=== PATIENT | female | born 1980 | race Caucasian/White ===

== ENCOUNTER 2018-03-06 19:47 | Emergency (ER) | payer OTHER, MEDICAID, SELFPAY ==
[2018-03-06 20:02] VITALS: BP 154/91; PULSE 84; RESP 14; TEMP 36.8; O2SAT 98; BMI 43.0
--- NOTE | 2018-03-06 20:37 | ED.BACK ---
HPI - Back Pain/Injury <ANN MARIE Dubon - Last Filed: 03/06/18 22:10> General Chief Complaint: Back Pain/Injury Stated Complaint: sciatic nerve pain Time Seen by Provider: 03/06/18 20:34 Source: patient Mode of arrival: ambulatory Limitations: no limitations History of Present Illness HPI Narrative: 37-year-old female here for complaint of lower back pain with pain radiating down into her left buttocks area for the last day and half. She denies any trauma to her lower back. She does report that she was unloading dog food from a truck a few days ago however she denies any other strenuous activity. She reports increased pain with movement of the lower back. She denies any loss of bladder or bowel control. Patient is ambulatory into the emergency room. She reports that she has had back pain in the past but she has not had any issues over the past couple of years. No other concerns or complaints. MD Complaint: back pain Related Data Previous Rx's Medication Instructions Recorded cyclobenzaprine 10 mg PO TID PRN #15 tab 03/06/18 prednisone 40 mg PO DAILY #6 tab 03/06/18 Allergies Allergy/AdvReac Type Severity Reaction Status Date / Time No Known Drug Allergies Allergy Verified 03/06/18 20:04 Review of Systems <ANN MARIE Dubon - Last Filed: 03/06/18 22:10> Constitutional Denies chills, Denies fever(s), Denies lethargy and Denies weakness Eyes Denies change in vision, Denies eye discharge, Denies irritation and Denies loss of vision ENT Ears, Nose, Mouth, and Throat: Denies change in voice, Denies neck pain and Denies sore throat Cardiovascular Denies chest pain, Denies irregular heart rhythm, Denies lightheadedness, Denies palpitations, Denies dyspnea, Denies dyspnea on exertion and Denies orthopnea Respiratory Denies cough, Denies dyspnea, Denies dyspnea on exertion and Denies wheezing Gastrointestinal Gastrointestinal: Denies abdominal pain, Denies change in bowel habits, Denies diarrhea, Denies nausea and Denies vomiting Genitourinary Denies hematuria, Denies flank pain, Denies urinary incontinence and Denies urinary urgency Musculoskeletal Reports back pain and Denies neck pain Integumentary/Breasts Denies pruritus, Denies erythema, Denies rash and Denies wounds Neurologic Denies confusion, Denies loss of vision and Denies weakness Psychiatric Denies anxiety, Denies confusion, Denies depression, Denies homicidal ideation and Denies suicidal ideation Endocrine Denies palpitations Hematologic/Lymphatic Denies easy bruising Allergic/Immunologic Denies wheezing Exam <ANN MARIE Dubon - Last Filed: 03/06/18 22:10> Initial Vital Signs Initial Vital Signs: Vital Signs Temperature 98.3 F 03/06/18 20:02 Pulse Rate 84 03/06/18 20:02 Respiratory Rate 14 03/06/18 20:02 Blood Pressure 154/91 H 03/06/18 20:02 Pulse Oximetry 98 03/06/18 20:02 Const General: cooperative and well developed Nutritional Appearance: well nourished Orientation: alert, awake, oriented x3 and not confused HENVA Mouth: oral mucosae normal, oropharynx normal and moist mucous membranes Eyes Sclera: sclerae normal Cornea: corneas normal Pupils: PERRL EOM: EOM intact bilaterally Chest Chest: normal inspection of the chest Resp Effort & Inspection: normal respiratory effort, able to speak in complete sentences, no respiratory distress and no use of accessory muscles Auscultation: clear to auscultation bilaterally, no rales, no rhonchi and no wheezes Cardio Rate: regular rate Rhythm: regular rhythm Heart Sounds: no click, no gallops, no murmurs and no rubs General: CVA tenderness Back/Spine/Pelvis Other: Tenderness to lumbar paraspinals. No midline tenderness. No deformities. Tenderness on palpation radiate into her left buttocks. Distal sensation is intact. Distal range of motion is intact. Distal pulses are intact. Skin General: no rashes or lesions noted, No jaundice and No petechiae <Benedicto Davis DO - Last Filed: 03/07/18 01:31> Initial Vital Signs Initial Vital Signs: Vital Signs Temperature 98.3 F 03/06/18 20:02 Pulse Rate 84 03/06/18 20:02 Respiratory Rate 14 03/06/18 20:02 Blood Pressure 154/91 H 03/06/18 20:02 Pulse Oximetry 98 03/06/18 20:02 Course <ANN MARIE Dubon - Last Filed: 03/06/18 22:10> Orders Ordered: Discontinued Medications Cyclobenzaprine HCl (Flexeril) 10 mg PO NOW ONE Stop: 03/06/18 21:18 Last Admin: 03/06/18 21:22 Dose: 10 mg Prednisone (Deltasone) 40 mg PO NOW ONE Stop: 03/06/18 21:18 Last Admin: 03/06/18 21:21 Dose: 40 mg Vital Signs - 8 hr 03/06/18 20:02 03/06/18 21:35 Temperature 98.3 F Pulse Rate 84 78 Respiratory Rate 14 16 Blood Pressure 154/91 H 119/70 Pulse Oximetry 98 97 <Benedicto Davis DO - Last Filed: 03/07/18 01:31> Orders Ordered: Discontinued Medications Cyclobenzaprine HCl (Flexeril) 10 mg PO NOW ONE Stop: 03/06/18 21:18 Last Admin: 03/06/18 21:22 Dose: 10 mg Prednisone (Deltasone) 40 mg PO NOW ONE Stop: 03/06/18 21:18 Last Admin: 03/06/18 21:21 Dose: 40 mg Vital Signs - 8 hr 03/06/18 20:02 03/06/18 21:35 Temperature 98.3 F Pulse Rate 84 78 Respiratory Rate 14 16 Blood Pressure 154/91 H 119/70 Pulse Oximetry 98 97 MDM - Back Pain/Injury <ANN MARIE Dubon - Last Filed: 03/06/18 22:10> MDM Narrative Medical decision making narrative: Signs and symptoms presents as strain into lumbar left paraspinals causing sciatica to the left side. She is prescribed cyclobenzaprine and also short course of steroids. [id number] ibuprofen as needed for any discomfort. Generalized range of motion to the lumbar area to help with keeping muscles loose. Follow up with primary care provider later this week. Return emergency room for any worsening symptoms. Discharge Plan Departure Patient Disposition: Home, Self-Care Clinical Impression: Strain of lumbar region Discharge Date/Time: 03/06/18 21:36 Interventions: ED Discharge Assessment Last Done: 03/06/18 21:35 Instructions: DI for Low Back Pain Activity Restrictions/Additional Instructions: Signs and symptoms presents as strain to lower back causing sciatica to the left side. You have been prescribed cyclobenzaprine a muscle relaxer and also short course of steroids use as directed. [id number] ibuprofen as needed for any discomfort. Generalized range of motion to the lumbar area to help with keeping muscles loose. Follow up with primary care provider later this week. Return emergency room for any worsening symptoms. Prescriptions: New cyclobenzaprine 10 mg tablet 10 mg PO TID PRN (Reason: muscle spasm) Qty: 15 RF: 0 prednisone 20 mg tablet 40 mg PO DAILY Qty: 6 RF: 0 Referrals: Cami Helms PA-C [Primary Care Provider] - <Benedicto Davis DO - Last Filed: 03/07/18 01:31> Cosign ED Attending [place] Attestation: I was available for consultation during this patient's emergency department encounter
[2018-03-06] MEDS: predniSONE 20 MG TABLET 40 MG PO (21:21)
[2018-03-06] MEDS: CYCLOBENZAPRINE 10 MG TABLET PO (21:22)
[2018-03-06 21:35] VITALS: BP 119/70; PULSE 78; RESP 16; O2SAT 97
== END 2018-03-06 21:36 | disposition home or self-care (01) ==
PROVIDERS: Emergency Provider Nurse Practitioner Family; Family Provider Physician Assistant Medical; PCP Physician Assistant Medical
DX: S39.012A Strain of muscle, fascia and tendon of lower back, initial encounter (principal)
CPT/HCPCS: 99282; 99283

== ENCOUNTER 2018-09-26 16:55 | Emergency (ER) | payer OTHER, MEDICAID, SELFPAY ==
[2018-09-26 17:02] VITALS: BP 146/79; PULSE 75; RESP 20; TEMP 36.7; O2SAT 99
--- NOTE | 2018-09-26 17:03 | ED.EAR ---
HPI - Ear Problem <ANN MARIE Dubon - Last Filed: 09/26/18 22:02> General Chief complaint: Ear Stated complaint: SOMETHING STUCK IN EAR Time Seen by Provider: 09/26/18 17:02 Source: patient Mode of arrival: ambulatory Limitations: no limitations History of Present Illness HPI Narrative: 38-year-old healthy female is a nonsmoker here for complaint of foreign body to her right ear. She states she was using a Q-tip earlier today when the cotton portion of the Q-tip state in her right ear. She reports that she tried to remove the Q-tip however was not able to be removed. She denies any ear pain. She denies any drainage from the right ear. She feels pressure to the right ear. And slightly reduced hearing. She reports no dizziness. No other concerns or complaints. MD Complaint: foreign body Related Data Previous Rx's Medication Instructions Recorded cyclobenzaprine 10 mg PO TID PRN #15 tab 03/06/18 prednisone 40 mg PO DAILY #6 tab 03/06/18 Allergies Allergy/AdvReac Type Severity Reaction Status Date / Time No Known Drug Allergies Allergy Verified 03/06/18 20:04 Review of Systems <ANN MARIE Dubon - Last Filed: 09/26/18 22:02> Constitutional Denies chills, Denies fever(s), Denies lethargy and Denies weakness Eyes Denies change in vision, Denies eye discharge, Denies irritation and Denies loss of vision ENT Comments: Foreign body right ear Cardiovascular Denies chest pain, Denies irregular heart rhythm, Denies lightheadedness, Denies palpitations, Denies dyspnea, Denies dyspnea on exertion and Denies orthopnea Respiratory Denies cough, Denies dyspnea, Denies dyspnea on exertion and Denies wheezing Gastrointestinal Gastrointestinal: Denies abdominal pain, Denies change in bowel habits, Denies diarrhea, Denies nausea and Denies vomiting Genitourinary Denies hematuria, Denies flank pain, Denies urinary incontinence and Denies urinary urgency Musculoskeletal Denies back pain, Denies muscle weakness, Denies numbness and Denies tingling Integumentary/Breasts Denies pruritus, Denies erythema, Denies rash and Denies wounds Neurologic Denies confusion, Denies loss of vision, Denies numbness, Denies tingling and Denies weakness Psychiatric Denies anxiety, Denies confusion, Denies depression, Denies homicidal ideation and Denies suicidal ideation Endocrine Denies palpitations Hematologic/Lymphatic Denies easy bruising Allergic/Immunologic Denies wheezing Exam <ANN MARIE Dubon - Last Filed: 09/26/18 22:02> Initial Vital Signs Initial Vital Signs: Vital Signs Temperature 98.1 F 09/26/18 17:02 Pulse Rate 75 09/26/18 17:02 Respiratory Rate 20 09/26/18 17:02 Blood Pressure 146/79 H 09/26/18 17:02 Pulse Oximetry 99 09/26/18 17:02 Const General: cooperative and well developed Nutritional Appearance: well nourished Orientation: alert, awake, oriented x3 and not confused HENMT Ears: external ears normal, TM's normal bilaterally and other (Cotton foreign body seen to right external ear) Mouth: oral mucosae normal and mucous membranes abnormal Eyes Conjunctivae: conjunctivae normal Sclera: sclerae normal Pupils: PERRL EOM: EOM intact bilaterally Resp Effort & Inspection: normal respiratory effort, able to speak in complete sentences, no respiratory distress and no use of accessory muscles Auscultation: clear to auscultation bilaterally, no rales, no rhonchi and no wheezes Cardio Rate: regular rate Rhythm: regular rhythm Heart Sounds: no click, no gallops, no murmurs and no rubs Skin General: no rashes or lesions noted, No jaundice and No petechiae Neuro General: alert, oriented x3, gait normal and no focal motor deficits Speech: speech normal <Sue Gama DO - Last Filed: 09/29/18 18:47> Initial Vital Signs Initial Vital Signs: Vital Signs Temperature 98.1 F 09/26/18 17:02 Pulse Rate 75 09/26/18 17:02 Respiratory Rate 20 09/26/18 17:02 Blood Pressure 146/79 H 09/26/18 17:02 Pulse Oximetry 99 09/26/18 17:02 Procedures <ANN MARIE Dubon - Last Filed: 09/26/18 22:02> Foreign Body EAR Location: ear canal (R) Foreign Body Suspected: other (Cotton tip from acute) TM intact pre-procedure: unable to visualize Foreign Body Removed: yes Foreign Body Removal Technique: instrumentation Tympanic Membrane Intact Post Procedure: Yes Patient Tolerated Procedure: Well Complications: none Course <ANN MARIE Dubon - Last Filed: 09/26/18 22:02> Vital Signs - 8 hr 09/26/18 17:02 Temperature 98.1 F Pulse Rate 75 Respiratory Rate 20 Blood Pressure 146/79 H Pulse Oximetry 99 <Sue Gama DO - Last Filed: 09/29/18 18:47> Vital Signs - 8 hr 09/26/18 17:02 Temperature 98.1 F Pulse Rate 75 Respiratory Rate 20 Blood Pressure 146/79 H Pulse Oximetry 99 Medical Decision Making <Humberto SandersonANN MARIE ulloa - Last Filed: 09/26/18 22:02> MDM Narrative Medical decision making narrative: Foreign body of Q-tip tip was removed with Covarrubias Cathryn ear forceps. Was able to remove the foreign body with no complications. Patient tolerated well. Tympanic membranes were intact after removal. Follow up with primary care provider. Return emergency room for any worsening symptoms. Discharge Plan Departure Patient Disposition: Home Clinical Impression: Foreign body in right ear Discharge Date/Time: 09/26/18 17:36 Interventions: ED Discharge Assessment Last Done: 09/26/18 17:35 Instructions: DI for Removal of Foreign Body From Ear Activity Restrictions/Additional Instructions: Q-tip cotton was able to be removed in the emergency room today. Inner ear appears to be normal. Follow up with her primary care provider. For any worsening symptoms return to the emergency room. Prescriptions: No Action cyclobenzaprine 10 mg tablet 10 mg PO TID PRN (Reason: muscle spasm) Qty: 15 RF: 0 prednisone 20 mg tablet 40 mg PO DAILY Qty: 6 RF: 0 Referrals: Cami Helms PA-C [Primary Care Provider] - <Sue Gama DO - Last Filed: 09/29/18 18:47> Cosign ED Attending Nannetteature Attestation: I was immediately available in the department for consultation. This documentation has been reviewed and I agree with assessment and plan. Supervised by Sue Gama DO
--- NOTE | 2018-09-26 17:22 | PC.NURSE ---
Visualized a piece of cotton from a Qtip, per the patient, inside the right ear canal. Patient denies pain or discomfort at this time.
== END 2018-09-26 17:36 | disposition home or self-care (01) ==
PROVIDERS: Emergency Provider Nurse Practitioner Family; Family Provider Physician Assistant Medical; PCP Physician Assistant Medical
DX: T16.1XXA Foreign body in right ear, initial encounter (principal)
CPT/HCPCS: 99282

== ENCOUNTER 2021-09-01 01:18 | Emergency (ER) | payer OTHER, MEDICAID, SELFPAY ==
[2021-09-01 01:25] VITALS: BP 169/96; PULSE 103; RESP 16; TEMP 37.2; O2SAT 98; BMI 45.4
--- NOTE | 2021-09-01 01:31 | ED_ITS ---
HPI - General Chief complaint: OB/Uterine Contractions Stated complaint: 9 weeks /bleeding x2 hours Time Seen by Provider: 09/01/21 01:30 History of Present Illness HPI Narrative: 41-year-old female nonsmoker is a at 9 weeks and presents with lower pelvic cramping and bleeding with the passage of clots over the course of the day. She states that she has had some spotting over the past few days but it definitely has increased today. She denies the passage of any other fluid or discharge. She has had no fever chills and denies any dizziness, weakness or ligh theadedness. Related Data Previous Rx's Medication Instructions Recorded cyclobenzaprine 10 mg tablet 10 mg PO TID PRN #15 tab 03/06/18 prednisone 20 mg tablet 40 mg PO DAILY #6 tab 03/06/18 Allergies Allergy/AdvReac Type Severity Reaction Status Date / Time No Known Drug Allergies Allergy Verified 03/06/18 20:04 Review of Systems Review of Systems Narrative: GENERAL: Denies chills, fatigue, malaise, fever, sweats. HEENT: Denies sinus pain, ear pain, sore throat, difficulty swallowing, dizzines s. RESPIRATORY: Denies dyspnea, cough, wheezing, hemoptysis, sputum. CARDIOVASCULAR: Denies chest pain, palpitations, orthopnea, edema, GASTROINTESTINAL: Denies nausea, vomiting, abdominal pain, diarrhea, constipation, melena. : See HPI MUSCULOSKELETAL: denies weakness, joint pain, or bony pain SKIN: Denies rash, skin lesions, or other NEUROLOGIC: Denies weakness, headache, numbness, change in speech, confusion, seizures, incoordination. PSYCHIATRIC: No concerning psychosocial issues. 12 point review of systems is negative except for those stated above Exam Narrative Exam Narrative: GENERAL: [41 year old patient appears stated age. Well-developed patient, in mild distress. HEAD: Atraumatic. Normocephalic. EYES: Pupils equal round and reactive. Extraocular motions intact. No scleral icterus. No injection or drainage. ENT: Nose without bleeding, purulent drainage. Throat without erythema, tonsillar hypertrophy or exudate. Airway patent. NECK: Trachea midline. Non tender CARDIOVASCULAR: Regular rate and rhythm without murmurs, gallops, or rubs. RESPIRATORY: Clear to auscultation. Breath sounds equal bilaterally. No wheezes, rales, or rhonchi. GASTROINTESTINAL: Abdomen soft, non-tender, nondistended. EXTREMITIES: No edema or joint tenderness. BACK: Nontender without deformity or crepitance. No flank tenderness. NEURO: AOx3. SKIN: No rash or erythema of visible areas Initial Vital Signs Initial Vital Signs: Vital Signs Temperature 98.9 F 09/01/21 01:25 Pulse Rate 103 H 09/01/21 01:25 Respiratory Rate 16 09/01/21 01:25 Blood Pressure 169/96 H 09/01/21 01:25 Pulse Oximetry 98 09/01/21 01:25 Course Orders Ordered: ED Orders 09/01/21 01:50 ABO RH Type Stat Complete Blood Count AUTO DIFF Stat Comprehensive Metabolic Panel Stat HCG Quantitative /Beta subunit Stat 09/01/21 01:52 US OB <= 14 weeks fetus Stat 09/01/21 03:16 Urine Culture Stat Urine Microscopic Stat Vital Signs Vital signs: Vital Signs - 8 hr 09/01/21 01:25 09/01/21 04:00 Temperature 98.9 F Pulse Rate 103 H 92 H Respiratory Rate 16 18 Blood Pressure 169/96 H 169/85 H Pulse Oximetry 98 96 MDM - OB/Uterine Contractions Lab Data Result diagrams: 09/01/21 01:50 09/01/21 01:50 Labs: Lab Results 09/01/21 09/01/21 09/01/21 Range/Units 01:50 01:50 01:50 WBC 10.9 (4.5-11.0) X10^3/uL RBC 4.57 (4.0-5.2) X10^6/uL Hgb 14.5 (12.0-16.0) g/dL Hct 40.6 (36-46) % MCV 88.8 (80-100) fL MCH 31.6 (26-34) PG MCHC 35.6 (30-36) % RDW 13.2 (11.6-14.8) % Plt Count 210 (150-400) X10^3/uL Neut % (Auto) 75.4 H (50-75) % Lymph % (Auto) 19.4 L (25-40) % [place] % (Auto) 4.0 (3-14) % Eos % (Auto) 0.8 L (2-4) % Baso % (Auto) 0.4 (0-2) % Neut # (Auto) 8200 H (8427-2857) /uL Lymph # (Auto) 2100 (3022-4643) /uL [place] # (Auto) 400 (0-900) /uL Eos # (Auto) 100 (0-450) /uL Baso # (Auto) 0 (0-100) /uL Sodium 137 (137-145) mmol/L Potassium 3.4 (3.4-5.1) mmol/L Chloride 103 (98-107) mmol/L Carbon Dioxide 22 (22-32) mmol/L BUN 8 (7-17) mg/dL Creatinine 0.50 L (0.52-1.04) mg/dL Estimated GFR > 60.0 (>60) mL/min BUN/Creatinine Ratio 16.0 (6-22) Glucose 178 H (70-100) mg/dL Calcium 9.3 (8.4-10.2) mg/dL Total Bilirubin 0.9 (0.2-1.3) mg/dL AST 27 (14-36) IU/L ALT 28 (<35) IU/L Alkaline Phosphatase 38 (38-126) U/L Total Protein 7.5 (6.3-8.2) g/dL Albumin 4.3 (3.5-5.0) g/dL Globulin 3.2 (1.7-4.1) g/dL Albumin/Globulin Ratio 1.3 (1.0-2.8) HCG, Quant 382018 mIU/mL Urine RBC (0-5/HPF) Urine WBC (0-5/HPF) Ur Squamous Epith Cells (0-5/HPF) Urine Bacteria (None) Ur Culture Indicated? Blood Type O Positive 09/01/21 Range/Units 03:16 WBC (4.5-11.0) X10^3/uL RBC (4.0-5.2) X10^6/uL Hgb (12.0-16.0) g/dL Hct (36-46) % MCV (80-100) fL MCH (26-34) PG MCHC (30-36) % RDW (11.6-14.8) % Plt Count (150-400) X10^3/uL Neut % (Auto) (50-75) % Lymph % (Auto) (25-40) % [place] % (Auto) (3-14) % Eos % (Auto) (2-4) % Baso % (Auto) (0-2) % Neut # (Auto) (5114-3378) /uL Lymph # (Auto) (4163-7449) /uL [place] # (Auto) (0-900) /uL Eos # (Auto) (0-450) /uL Baso # (Auto) (0-100) /uL Sodium (137-145) mmol/L Potassium (3.4-5.1) mmol/L Chloride (98-107) mmol/L Carbon Dioxide (22-32) mmol/L BUN (7-17) mg/dL Creatinine (0.52-1.04) mg/dL Estimated GFR (>60) mL/min BUN/Creatinine Ratio (6-22) Glucose (70-100) mg/dL Calcium (8.4-10.2) mg/dL Total Bilirubin (0.2-1.3) mg/dL AST (14-36) IU/L ALT (<35) IU/L Alkaline Phosphatase (38-126) U/L Total Protein (6.3-8.2) g/dL Albumin (3.5-5.0) g/dL Globulin (1.7-4.1) g/dL Albumin/Globulin Ratio (1.0-2.8) HCG, Quant mIU/mL Urine RBC 0-1/hpf (0-5/HPF) Urine WBC 0-1/hpf (0-5/HPF) Ur Squamous Epith Cells 1-5 /hpf (0-5/HPF) Urine Bacteria Many (>30) H (None) Ur Culture Indicated? Specimen cultured Blood Type Urine Dip Bedside Urine Glucose Negative Bedside Urine Bilirubin - Negative Bedside Urine Ketone + 15 Urine Specific [place] 1.030 Bedside Urine Occult Blood +++ Bedside Urine pH 6.0 Bedside Urine Protein +/- 15 Bedside Urine Urobilinogen - Negative Bedside Urine Nitrite - Negative Bedside Urine Leukocytes - Negative Esterase Imaging Data US - OB: Radiologist's Impression: Single living intrauterine gestation estimated at 9 weeks 1 day. Subchorionic hemorrhage demonstrated MDM Narrative Medical decision making narrative: Patient with reassuring history and physical exam. Labs are unremarkable, patient does not need RhoGAM. Bleeding is minimal. Ultrasound demonstrates i ntrauterine and subchorionic hemorrhage. Patient given return precautions and questions answered to her apparent satisfaction Discharge Plan Departure Patient Disposition: Home Clinical Impression: Bleeding in early Instructions: DI for -- Discomforts and Remedies Activity Restrictions/Additional Instructions: *You have been diagnosed with [bleeding in 1st trimester, your history, physical exam, labs and ultrasound are reassuring. There is no evidence of ectopic . Ultrasound does show a small implantation bleed which is treated most commonly by pelvic rest. *What to do: *Please continue to take your regular medications as directed. [ ] New medication prescriptions sent to your pharmacy: [ ] [ ] New medication written as a paper prescription [x ] No new medications given *Please follow up with your primary care provider in 2-3 days, call for an appointment. Let them know you were seen in the Emergency Department and that we ask that you be seen in follow up. We will electronically transmit a record of arlen davis's note if your PCP is in our system *If you do not have a primary care provider please contact the [facility] Resource line at [phone]. They will ask some questions about your medical history and help get you set up with a doctor in the community. *Return to Emergency Department if you should have any new, worsening or concerning symptoms, such as [fever greater than 101 F, shaking chills, worsening pain, heavy, persistent bleeding through more than 1 pad per hour, or other bothersome symptoms Prescriptions: No Action cyclobenzaprine 10 mg tablet 10 mg PO TID PRN (Reason: muscle spasm) Qty: 15 0RF prednisone 20 mg tablet 40 mg PO DAILY Qty: 6 0RF Rx Instructions: administer with food or milk Referrals: Cami Helms PA-C [Primary Care Provider] -
--- NOTE | 2021-09-01 01:52 | DI.US.S_ITS ---
PROCEDURE: US OB <= 14 WEEKS FETUS INDICATIONS: BLEEDING OUTSIDE/PRIOR DATING DATA: Last menstrual period (LMP): Not known LMP-based estimated date of delivery (JASPER): Not applicable First dating scan (date and location): September 01, 2021 Estimated date of delivery (JASPER) from first dating scan: April 05, 2022 The calculations are made using the ultrasound JASPER of April 05, 2022 TECHNIQUE: Real-time scanning was performed of the fetus and maternal pelvic organs, with image documentation. Endovaginal scanning was also performed to better visualize the fetus and maternal ovaries. COMPARISON: None. FINDINGS: Embryo: Single living intrauterine identified. pole and yolk sac are identified. [place]-rump length measures 2.4 centimeters corresponding to ultrasound estimated gestational age of 9 weeks 1 day. Small 3.2 x 1.6 x 1.2 centimeter perigestational/subchorionic bleed. Heart rate: 175 beats per minute Maternal organs: Ovaries not visualized and cannot be evaluated. IMPRESSION: Single living intrauterine with ultrasound estimated gestational age of 9 weeks 1 day corresponding to ultrasound JASPER of April 05, 2022. Dictated by: Radha Stanley MD, PhD on 09/01/2021 at 8:19 Approved by: Radha Stanley MD, PhD on 09/01/2021 at 8:21 We strive to produce accurate, complete, and clear reports of imaging services. To assist us in improving patient care, this report was composed using standard report templates and voice recognition software. Therefore, it may contain abnormal punctuation, misrecognitions, insertions and/or omissions. Occasional wrong-word or sound-alike substitutions may occur. Though we review the report and make efforts to correct it, we do recommend that the report be read carefully in proper context to recognize any text inaccuracies.
[2021-09-01 02:15] LABS: Add Manual Diff / Slide Review NO; Basophils Absolute Auto 0 /uL (0-100); Basophils Percent Auto 0.4 % (0-2); Eosinophils Absolute Auto 100 /uL (0-450); Eosinophils Percent Auto 0.8 % (2-4); Hematocrit 40.6 % (36-46); Hemoglobin 14.5 g/dL (12.0-16.0); Lymphocytes Absolute Auto 2100 /uL (1100-4500); Lymphocytes Percent Auto 19.4 % (25-40); Mean Corpuscular HGB Conc 35.6 % (30-36); Mean Corpuscular Hemoglobin 31.6 PG (26-34); Mean Corpuscular Volume 88.8 fL (80-100); Monocytes Absolute Auto 400 /uL (0-900); Neutrophils Absolute Auto 8200 /uL (1500-7000); Neutrophils Percent Auto 75.4 % (50-75); Platelet Count 210 X10^3/uL (150-400); Red Blood Cell Count 4.57 X10^6/uL (4.0-5.2); Red Cell Distribution Width 13.2 % (11.6-14.8); White Blood Cell Count 10.9 X10^3/uL (4.5-11.0)
[2021-09-01 02:20] LABS: Alanine Aminotransferase 28 IU/L (<35); Albumin 4.3 g/dL (3.5-5.0); Albumin Globulin Ratio 1.3 (1.0-2.8); Alkaline Phosphatase 38 U/L (38-126); Aspartate Aminotransferase 27 IU/L (14-36); Bilirubin Total 0.9 mg/dL (0.2-1.3); Blood Urea Nitrogen 8 mg/dL (7-17); Calcium 9.3 mg/dL (8.4-10.2); Carbon Dioxide 22 mmol/L (22-32); Chloride 103 mmol/L (98-107); Estimated Glomerular Filt Rate > 60.0 mL/min (>60); Globulin 3.2 g/dL (1.7-4.1); Glucose 178 mg/dL (70-100); HEMOLYSIS 26 (0-50); Potassium 3.4 mmol/L (3.4-5.1); Sodium 137 mmol/L (137-145); Total Protein 7.5 g/dL (6.3-8.2)
[2021-09-01 02:35] LABS: HCG Quantitative /Beta subunit 138230 mIU/mL
[2021-09-01 03:47] LABS: Bacteria Urine Many (>30); Culture Indicated Urine Specimen Cultured; RBC Urine 0-1/HPF (0-5/HPF); Squamous Epithelial Cell Urine 1-5 /HPF (0-5/HPF); WBC Urine 0-1/HPF (0-5/HPF)
[2021-09-01 04:00] VITALS: BP 169/85; PULSE 92; RESP 18; O2SAT 96
== END 2021-09-01 04:00 | disposition home or self-care (01) ==
PROVIDERS: Emergency Provider Emergency Medicine; Family Provider Physician Assistant Medical; PCP Physician Assistant Medical
DX: O20.9 Hemorrhage in early pregnancy, unspecified (principal); O26.891 Other specified pregnancy related conditions, first trimester; R10.2 Pelvic and perineal pain; Z3A.09 9 weeks gestation of pregnancy
CPT/HCPCS: 36415; 76801; 76817; 80053; 81003; 81015; 84702; 85025; 86900; 86901; 87077; 87086; 87147; 87186; 99284

== ENCOUNTER 2024-08-21 08:47 | Emergency (ER) | payer OTHER, MEDICAID, SELFPAY ==
[2024-08-21] VITALS (11 sets, daily range): BP systolic 123–161; BP diastolic 60–87; PULSE 64–87; RESP 20; TEMP 36.6; O2SAT 92–100; BMI 45.4
--- NOTE | 2024-08-21 09:19 | ED_ITS ---
HPI - Abdominal Pain General Chief Complaint: Urogenital-Female Stated Complaint: kidney px nausea vomitting blood in urine Time Seen by Provider: 08/21/24 08:59 Source: patient Mode of arrival: Ambulatory History of Present Illness HPI narrative: 44-year-old female with history of remote cholecystectomy, prior C-sections, no other abdominopelvic surgeries recalled, now with diffuse abdominal pain and nausea nonbloody emesis since midnight last night, last bowel movement earlier today not loose, no black or red stools. No mucoid stools. No fevers or chills. Denies shortness of breath, cough, chest pain. Denies sore throat, ear pain, sinus pain, headache. Denies neck pain, photophobia. Has pain bilateral flanks, denies pain on urination, or frequency of urination. No injury or trauma recalled, though she has had back pain problems before, for which she has been treated with steroids and muscle relaxants, this feels somewhat different. No persons in household with similar symptoms. Related Data Previous Rx's Medication Instructions Recorded cyclobenzaprine 10 mg tablet 10 mg PO TID PRN muscle spasm #15 03/06/18 tabs prednisone 20 mg tablet 40 mg (2 x 20 mg) PO DAILY #6 tabs 03/06/18 methocarbamol 500 mg tablet 500 mg PO TID 7 days #21 tabs 08/21/24 naproxen 500 mg tablet 500 mg PO BID 7 days #14 tabs 08/21/24 Allergies Allergy/AdvReac Type Severity Reaction Status Date / Time No Known Drug Allergies Allergy Verified 03/06/18 20:04 Review of Systems Review of Systems Narrative: See HPI Patient History Social History Smoking Status: Never smoker Smoking Status: Never smoker alcohol intake frequency: 0-2 drinks per day Substance Use Type: does not use Exam Narrative Exam Narrative: GENERAL: Well-developed patient, in mild distress. HEAD: Atraumatic. Normocephalic. EYES: Pupils equal round and reactive. Extraocular motions intact. No scleral icterus. No injection or drainage. ENT: Nose without bleeding, purulent drainage. Throat without erythema, tonsillar hypertrophy or exudate. Airway patent. NECK: Trachea midline. Non tender CARDIOVASCULAR: Regular rate and rhythm without murmurs, gallops, or rubs. RESPIRATORY: Clear to auscultation. Breath sounds equal bilaterally. No wheezes, rales, or rhonchi. GASTROINTESTINAL: Abdomen soft, non-tender, nondistended. Large ventral pannus, no obvious discrete areas of tenderness, could not appreciate ventral hernia but difficult to localize by exam. EXTREMITIES: No edema or joint tenderness. BACK: Nontender without deformity or crepitance. No flank tenderness. NEURO: AOx3. Motor functions grossly nonfocal SKIN: No rash or erythema of visible areas Initial Vital Signs Initial Vital Signs: Vital Signs Temperature 98 F 08/21/24 09:08 Pulse Rate 76 08/21/24 09:08 Respiratory Rate 20 08/21/24 09:08 Blood Pressure 161/83 H 08/21/24 09:08 Pulse Oximetry 98 08/21/24 09:08 Oxygen Delivery Method Room Air 08/21/24 09:08 Course Orders Ordered: ED Orders 08/21/24 10:26 CT abdomen pelvis w con Stat 08/21/24 11:38 US pelvic complete Stat Discontinued Medications Hydromorphone HCl (Hydromorphone 0.5 Mg Inj) 0.5 mg IV NOW ONE Stop: 08/21/24 09:32 Last Admin: 08/21/24 09:55 Dose: 0.5 mg Documented By: MESFIN Hydromorphone HCl (Hydromorphone 0.5 Mg Inj) 0.5 mg IV NOW ONE Stop: 08/21/24 11:40 Last Admin: 08/21/24 11:42 Dose: 0.5 mg Documented By: MESFIN Sodium Chloride (Normal Saline 0.9%) 1,000 mls @ 500 mls/hr IV BOLUS ONE Stop: 08/21/24 11:30 Last Infusion: 08/21/24 11:00 Dose: Infused Documented By: Admin: 08/21/24 09:54 Dose: 500 mls/hr Documented By: MESFIN Ketorolac Tromethamine (Ketorolac 30 Mg/Ml Vial) 15 mg IV NOW ONE Stop: 08/21/24 10:46 Last Admin: 08/21/24 10:49 Dose: 15 mg Documented By: MESFIN Ondansetron HCl (Ondansetron 4 Mg/2 Ml Inj) 4 mg IV NOW ONE Stop: 08/21/24 09:32 Last Admin: 08/21/24 09:55 Dose: 4 mg Documented By: MESFIN Vital Signs Vital signs: Vital Signs - 8 hr 08/21/24 11:00 08/21/24 11:00 08/21/24 11:30 Pulse Rate 71 Respiratory Rate Blood Pressure 127/60 124/67 Pulse Oximetry 95 Oxygen Delivery Method 08/21/24 11:30 08/21/24 11:57 08/21/24 12:26 Pulse Rate 68 70 Respiratory Rate Blood Pressure 139/87 Pulse Oximetry 95 92 Oxygen Delivery Method Room Air 08/21/24 14:24 08/21/24 14:24 08/21/24 15:46 Pulse Rate 64 82 Respiratory Rate 20 Blood Pressure 123/68 135/70 Pulse Oximetry 95 100 Oxygen Delivery Method Room Air Room Air MDM - Abdominal Pain Lab Data Attestation: I reviewed the patient's lab results. Lab results narrative: White blood cell count 8700, hemoglobin 15, platelets adequate. Basic metabolic panel unremarkable, liver functions normal, lipase normal. Urinalysis negative. Serum hCG negative. 08/21/24 09:45 08/21/24 09:45 Labs: Lab Results 08/21/24 08/21/24 Range/Units 09:16 09:45 WBC 8.7 (4.5-11.0) X10^3/uL RBC 4.84 (4.0-5.2) X10^6/uL Hgb 15.1 (12.0-16.0) g/dL Hct 42.9 (36-46) % MCV 88.7 (80-100) fL MCH 31.2 (26-34) PG MCHC 35.2 (30-36) % RDW 12.8 (11.6-14.8) % Plt Count 207 (150-400) X10^3/uL Neut % (Auto) 79.9 H (50-75) % Lymph % (Auto) 13.7 L (25-40) % [place] % (Auto) 4.4 (3-14) % Eos % (Auto) 1.3 L (2-4) % Baso % (Auto) 0.7 (0-2) % Neut # (Auto) 7000 (8362-9055) /uL Lymph # (Auto) 1200 (8008-0672) /uL [place] # (Auto) 400 (0-900) /uL Eos # (Auto) 100 (0-450) /uL Baso # (Auto) 100 (0-100) /uL Sodium 137 (137-145) mmol/L Potassium 4.1 (3.4-5.1) mmol/L Chloride 105 (98-107) mmol/L Carbon Dioxide 25 (22-32) mmol/L BUN 10 (7-17) mg/dL Creatinine 0.66 (0.52-1.04) mg/dL Estimated GFR > 60 (>60) mL/min BUN/Creatinine Ratio 15.2 (6-22) Glucose 123 H (70-100) mg/dL Calcium 9.5 (8.4-10.2) mg/dL Total Bilirubin 0.9 (0.2-1.3) mg/dL AST 41 H (14-36) IU/L ALT 45 H (<35) IU/L Alkaline Phosphatase 55 (38-126) U/L Ammonia < 9 L (9-30) umol/L Total Protein 7.6 (6.3-8.2) g/dL Albumin 4.4 (3.5-5.0) g/dL Globulin 3.2 (1.7-4.1) g/dL Albumin/Globulin Ratio 1.4 (1.0-2.8) Lipase 60 (23-300) U/L HCG, Quant < 2.39 mIU/mL Urine RBC 1-5/hpf (0-5/HPF) Urine WBC 1-5/hpf (0-5/HPF) Ur Squamous Epith Cells 5-10 /hpf H (0-5/HPF) Urine Bacteria Few (2-10) H (None) Vol Urine Centrifuged 10ml (spun) Point of care testing: Urine Dip Bedside Urine Glucose Negative Bedside Urine Bilirubin - Negative Bedside Urine Ketone - Negative Urine Specific [place] 1.010 Bedside Urine Occult Blood +++ Bedside Urine pH 8.5 Bedside Urine Protein +++ 300 Bedside Urine Urobilinogen - Negative Bedside Urine Nitrite - Negative Bedside Urine Leukocytes +/- 15 Esterase MDM Narrative Medical decision making narrative: 44-year-old obese female with history of prior remote cholecystectomy, prior C- sections, multiple episodes nausea nonbloody emesis, with ventral abdominal pain, bilateral flank pain, no dysuria or frequency. Requests pain medications. Afebrile, sirs screen negative. No tenderness discrete on ventral exam, no obvious hernia. DDx consider UTI, pyelonephritis, colitis, diverticulitis, enteritis, appendicitis, other. Labs pending. Patient would like pain medication, IV Dilaudid/Zofran, IV fluid bolus. Keep NPO for now. Urinalysis negative, hCG negative, white blood cell count not elevated. CT abdomen and pelvis ordered. Patient still having pain after IV Dilaudid, add IV Toradol. CT abdomen and pelvis shows no acute definite changes, ovarian cyst structure noted. Pelvic ultrasound ordered. Patient still having pain, additional IV Dilaudid dose ordered. Pelvic ultrasound showed small left-sided ovarian cyst, no mentioned of problems with blood flow, no acute inflammatory changes noted. See radiology report. Unclear if ultrasound pelvis findings related to her back pain, possibly referred pain, versus primary abdominal pain and incidental left ovarian cyst, consider trial of naproxen and Robaxin. She was agreeable to this, prescription sent to her pharmacy. Advised to follow up if symptoms not improving in the next couple of days. Return precautions discussed. Patient discharged home, stable/improved. Discharge Plan Departure Patient Disposition: Home Clinical Impression: Back pain, Abdominal pain, Cyst of left ovary Instructions: DI for Abdominal Pain-Adult Activity Restrictions/Additional Instructions: Back pain, abdominal pain, no fever on triage, screening labs unremarkable, test negative. CT abdomen and pelvis showed no acute changes. Ultrasound pelvis showed small left-sided ovarian cyst, without obvious involution or fluid, no inflammatory infectious like changes noted, good blood flow to both ovaries. Unclear if your back pain component symptoms are related to the left ovarian small cyst, might be incidental. Possible musculoskeletal cause of your discomfort. Trial of muscle relaxant Robaxin and anti- inflammatory medication naproxen for now. Follow up with your regular doctor in the next couple of days if not improving. Return to this/nearest emergency department for any change worsening symptoms or any concerns prior Prescriptions: New naproxen 500 mg tablet 500 mg PO BID 7 Days Qty: 14 0RF methocarbamol 500 mg tablet 500 mg PO TID 7 Days Qty: 21 0RF No Action cyclobenzaprine 10 mg tablet 10 mg PO TID PRN (Reason: muscle spasm) Qty: 15 0RF prednisone 20 mg tablet 40 mg PO DAILY Qty: 6 0RF Rx Instructions: administer with food or milk Referrals: Cami Helms PA-C [Primary Care Provider] - Stand Alone Forms: Patient Portal/API/Survey
[2024-08-21 09:53] LABS: Add Manual Diff / Slide Review NO; Basophils Absolute Auto 100 /uL (0-100); Basophils Percent Auto 0.7 % (0-2); Eosinophils Absolute Auto 100 /uL (0-450); Eosinophils Percent Auto 1.3 % (2-4); Hematocrit 42.9 % (36-46); Hemoglobin 15.1 g/dL (12.0-16.0); Lymphocytes Absolute Auto 1200 /uL (1100-4500); Lymphocytes Percent Auto 13.7 % (25-40); Mean Corpuscular HGB Conc 35.2 % (30-36); Mean Corpuscular Hemoglobin 31.2 PG (26-34); Mean Corpuscular Volume 88.7 fL (80-100); Monocytes Absolute Auto 400 /uL (0-900); Monocytes Percent Auto 4.4 % (3-14); Neutrophils Absolute Auto 7000 /uL (1500-7000); Neutrophils Percent Auto 79.9 % (50-75); Platelet Count 207 X10^3/uL (150-400); Red Blood Cell Count 4.84 X10^6/uL (4.0-5.2); Red Cell Distribution Width 12.8 % (11.6-14.8); White Blood Cell Count 8.7 X10^3/uL (4.5-11.0)
[2024-08-21] MEDS: SODIUM CHLORIDE 0.9% 1,000 ML 500 ML IV (09:54)
[2024-08-21] MEDS: HYDROMORPHONE 0.5 MG INJ IV ×2 (09:55→11:42)
[2024-08-21] MEDS: ONDANSETRON 4 MG/2 ML INJ IV (09:55)
[2024-08-21 10:09] LABS: Alanine Aminotransferase 45 IU/L (<35); Albumin 4.4 g/dL (3.5-5.0); Albumin Globulin Ratio 1.4 (1.0-2.8); Alkaline Phosphatase 55 U/L (38-126); Aspartate Aminotransferase 41 IU/L (14-36); BUN Creatinine Ratio 15.2 (6-22); Bilirubin Total 0.9 mg/dL (0.2-1.3); Blood Urea Nitrogen 10 mg/dL (7-17); Calcium 9.5 mg/dL (8.4-10.2); Carbon Dioxide 25 mmol/L (22-32); Chloride 105 mmol/L (98-107); Estimated Glomerular Filt Rate > 60 mL/min (>60); Globulin 3.2 g/dL (1.7-4.1); Glucose 123 mg/dL (70-100); HEMOLYSIS < 15 (0-50); Lipase 60 U/L (23-300); Potassium 4.1 mmol/L (3.4-5.1); Sodium 137 mmol/L (137-145); Total Protein 7.6 g/dL (6.3-8.2)
[2024-08-21 10:26] LABS: HCG Quantitative /Beta subunit < 2.39 mIU/mL
--- NOTE | 2024-08-21 10:26 | DI.CT.S_ITS ---
PROCEDURE: CT ABDOMEN PELVIS W CON INDICATIONS: abd pain, back pain TECHNIQUE: After the administration of intravenous contrast, axial sections acquired from the lung bases to the pubic symphysis. Coronal and sagittal reformats were performed. For radiation dose reduction, the following was used: automated exposure control, adjustment of mA and/or kV according to patient size. COMPARISON: None. FINDINGS: Image quality: Diagnostic. Lower Chest: Hazy opacity at right lung base is seen. No pleural effusion or pneumothorax. Heart size is normal, no pericardial effusion. ABDOMEN: Liver: No solid mass. Moderate hepatic steatosis. Gallbladder: Gallbladder is surgically absent. Biliary ducts: No biliary dilation. Pancreas: No ductal dilation. Spleen: Size is within normal limits. Adrenal Glands: No adrenal nodules. Kidneys and Ureters: No hydronephrosis. No solid mass. Simple appearing cyst in lower pole left kidney and measures 5.6 x 5.3 cm in size. No complex renal cystic lesion which requires follow up. Stomach and Bowel: There is no bowel obstruction. No gastric or small bowel wall thickening. Colon is decompressed. No definite colonic wall thickening. No pericolonic fat stranding. Normal appendix is seen in right lower quadrant. Peritoneum: No abnormal intraperitoneal fluid. No free air. Ventral Wall: No significant ventral hernia. Abdominal Nodes: No retroperitoneal or mesenteric adenopathy by size criteria. Vessels: Aorta and inferior vena cava are normal in size. PELVIS: Pelvic Organs: Intrauterine device is noted within central endometrium. Suggestion of a simple appearing cyst in left adnexa measures 3.6 x 3.4 cm in size series 2, image 135. Bladder: No bladder wall thickening, accounting for underdistention. Pelvic Nodes: No enlarged lymph nodes. Miscellaneous: No inguinal hernias are seen. Bones: No aggressive osseous abnormality. Degenerative disc disease throughout lumbar spine and visualized lower thoracic spine is seen more notably at L4-5 and L5-S1 levels with suggestion of prominent dorsal disc osteophyte complex formation at L5-S1 level causing moderate to severe central canal stenosis and bilateral neural foraminal narrowing. IMPRESSION: 1. No acute inflammatory process is seen in abdomen or pelvis. No bowel obstruction. No free fluid or free air. Normal appendix. 2. Hepatic steatosis, no discrete hepatic lesion. Prior cholecystectomy. 3. Degenerative disc disease throughout lumbar spine most notably at L5-S1 level causing moderate to severe central canal stenosis and bilateral neural foraminal narrowing as above. No acute vertebral body compression fracture. 4. Simple appearing cyst in left kidney. No renal stones or hydronephrosis. 5. Simple appearing left adnexal cyst as above and likely represent an ovarian cyst. IUD in place. Dictated by: Hamlet Siddiqui M.D. on 08/21/2024 at 10:50 Approved by: Hamlet Siddiqui M.D. on 08/21/2024 at 11:01
[2024-08-21 10:33] LABS: Ammonia (NH3) < 9 umol/L (9-30)
[2024-08-21 10:41] LABS: Bacteria Urine Few (2-10); RBC Urine 1-5/HPF (0-5/HPF); Squamous Epithelial Cell Urine 5-10 /HPF (0-5/HPF); Urine Volume 10mL (spun); WBC Urine 1-5/HPF (0-5/HPF)
[2024-08-21] MEDS: KETOROLAC 30 MG/ML VIAL 15 MG IV (10:49)
--- NOTE | 2024-08-21 11:38 | DI.US.S_ITS ---
PROCEDURE: US PELVIC COMPLETE INDICATIONS: back pain, CT Abd/P ovarian cyst, eval for torsion TECHNIQUE: Real-time scanning was performed of the pelvic organs, with image documentation. Additional endovaginal scanning was necessary due to incomplete visualization of the adnexal and endometrial structures by transabdominal scanning. COMPARISON: [facility], CT, CT ABDOMEN PELVIS W CON, 08/21/2024, 10:39. FINDINGS: Uterus: Uterus is anteverted and normal in size at 9.7 x 5.8 x 6.7 cm. The myometrium is heterogeneous with a venetian blind appearance. The endometrium measures 9.0 mm combined thickness. Intrauterine device is difficult to visualize but appears to be within the fundal endometrium. Ovaries: The right ovary is not seen. The left ovary measures 6.2 x 4.6 x 5.7 cm, with a calculated ovarian volume of 85 cc. Left ovarian cyst with septations measuring 5.2 x 3.3 x 3.4 cm. Arterial and venous flow is seen to the left ovary. Other: No pathologic free abdominal or pelvic fluid. Small fluid is likely physiologic. Postvoid residual of 0 cc. IMPRESSION: Arterial and venous flow is seen to the left ovary. Left ovarian septated cyst measuring 5.2 cm. Recommend 6-12 week follow-up ultrasound. Size of cyst increases risk of spontaneous torsion. Heterogeneous myometrium with a Venetian blind appearance, may represent adenomyosis. The right ovary is not seen We strive to produce accurate, complete, and clear reports of imaging services. To assist us in improving patient care, this report was composed using standard report templates and voice recognition software. Therefore, it may contain abnormal punctuation, insertions and/or omissions. Occasional wrong-word or sound-alike substitutions may occur. Though we review the report and make efforts to correct it, we do recommend that the report be read carefully in proper context to recognize any text inaccuracies. Dictated by: Terrance Browning M.D. on 08/21/2024 at 13:24 Approved by: Terrance Browning M.D. on 08/21/2024 at 13:27
== END 2024-08-21 15:49 | disposition home or self-care (01) ==
PROVIDERS: Emergency Provider Emergency Medicine; Family Provider Physician Assistant Medical; PCP Physician Assistant Medical
DX: N83.202 Unspecified ovarian cyst, left side (principal); R10.9 Unspecified abdominal pain; R11.2 Nausea with vomiting, unspecified; M54.50 Low back pain, unspecified
CPT/HCPCS: 36415; 74177; 76830; 76856; 80053; 81003; 81015; 82140; 83690; 84702; 85025; 87086; 93975; 96361; 96374; 96375; 96376; 99284; J1171; J1885; J2405; Q9967